=== PATIENT | male | born 1990 | race Two or more races ===

== ENCOUNTER 2017-01-11 02:49 | Emergency (ER) | payer SELFPAY ==
[~2017-01-11] VITALS: Ht 175.3 cm; Wt 68.0 kg
[2017-01-11] MEDS ORDERED: FLUORESCEIN SODIUM OPHTH 1 EA STRIP ONE ×2 (03:03→03:05)
[2017-01-11] MEDS ORDERED: TETRACAINE HCL/PF 0.5% UD 2 ML BOTTLE ONE (03:03)
--- NOTE | 2017-01-11 03:05 | NUR ---
PT BIB FRIEND FROM HOME, PT AMBULATORY TO ER BED 3, PT C/O BILATERAL EYE PAIN X 5 DAYS. PT DENIES ANY TRAUMA. PT AOX3 RR EVEN AND UNLABORED. NO SOB NOTED. NAD NOTED. NO NVD AT THIS TIME. PT WAITING FOR MD STARR.
--- NOTE | 2017-01-11 03:30 | NUR ---
DR. CLARK AT BEDSIDE FOR EYE EXAM.
[2017-01-11] MEDS ORDERED: GENTAMICIN OPTH SOLN 0.3% 5 ML BOTTLE ONE (03:41)
--- NOTE | 2017-01-11 03:55 | NUR ---
Patient discharged to home in stable condition. Written and verbal after care instructions given. Patient verbalizes understanding of instruction. ambulatory with a steady gait
[2017-01-11 03:56] VITALS: BP 130/78
[2017-01-11] MEDS ORDERED: FLUORESCEIN SODIUM OPHTH 1 EA STRIP OP ONE (04:00)
[2017-01-11] MEDS ORDERED: TETRACAINE HCL/PF 0.5% UD 2 ML BOTTLE OP ONE (04:00)
[2017-01-11] MEDS ORDERED: GENTAMICIN OPTH SOLN 0.3% 5 ML BOTTLE OP ONE (04:00)
== END 2017-01-11 03:57 | disposition home or self-care (01) ==
LOC: ER 02:49
DX: H10.9 Unspecified conjunctivitis (principal); J06.9 Acute upper respiratory infection, unspecified; J34.89 Other specified disorders of nose and nasal sinuses
CPT/HCPCS: 99284; A4606; Z7610